=== PATIENT | male | born 1995 | race Caucasian/White ===

== ENCOUNTER 2019-11-01 20:58 | Emergency (ER) | payer SELFPAY ==
[~2019-11-01] VITALS: Ht 177.8 cm; Wt 75.0 kg
[2019-11-01] MEDS ORDERED: IBUPROFEN 400MG TABLET PO ONE (22:30)
[2019-11-02 17:30] VITALS: BP 124/78
== END 2019-11-02 18:52 | disposition home or self-care (01) ==
LOC: ER 20:58
DX: S62.102A Fracture of unspecified carpal bone, left wrist, initial encounter for closed fracture (principal); S29.9XXA Unspecified injury of thorax, initial encounter; Y08.89XA Assault by other specified means, initial encounter; Y93.89 Activity, other specified; Y92.89 Other specified places as the place of occurrence of the external cause; Y99.8 Other external cause status
CPT/HCPCS: 29125; 71045; 73110; 99284